=== PATIENT | male | born 1940 | race Caucasian/White ===

== ENCOUNTER → 2016-09-13 | Outpatient (CLI) | payer OTHER ==
[2016-09-13 09:56] LABS: ASPARTATE AMINO TRANSFERASE 18 IU/L (21-57); BLOOD UREA NITROGEN 31 mg/dL (7-22); BUN/CREATININE RATIO 19.37 (6-20); CALCIUM 9.8 mg/dL (8.7-10.7); CHLORIDE 105 meq/L (98-112); CREATININE 1.6 mg/dL (0.70-1.50); GLUCOSE 89 mg/dL (78-110); HDL CHOLESTEROL 45 mg/dL (40-150); POTASSIUM 4.7 meq/L (3.8-5.2); SODIUM 138 meq/L (135-145); TOTAL PROTEIN 7.9 g/dL (6.1-8.0); TRIGLYCERIDES 154 mg/dL (44-200)
[2016-09-13 10:05] LABS: BLOOD UREA NITROGEN 31 mg/dL (7-22); BUN/CREATININE RATIO 19.37 (6-20); CALCIUM 9.9 mg/dL (8.7-10.7); CHLORIDE 105 meq/L (98-112); CREATININE 1.6 mg/dL (0.70-1.50); GLUCOSE 90 mg/dL (78-110); PHOSPHORUS 4.9 mg/dl (2.4-4.3); POTASSIUM 4.7 meq/L (3.8-5.2); SODIUM 139 meq/L (135-145)
== END ==
LOC: LAB 09:12
PROVIDERS: ATTEND Internal Medicine
DX: I12.9 Hypertensive chronic kidney disease with stage 1 through stage 4 chronic kidney disease, or unspecified chronic kidney disease (principal); N18.4 Chronic kidney disease, stage 4 (severe); E78.2 Mixed hyperlipidemia
CPT/HCPCS: 80053; 80061; 80069

== ENCOUNTER → 2016-09-16 | Outpatient (CLI) | payer OTHER | LOC: MMPC 11:11 | PROVIDERS: ATTEND Internal Medicine | DX: F10.10 Alcohol abuse, uncomplicated (principal); I10 Essential (primary) hypertension; E78.2 Mixed hyperlipidemia | CPT/HCPCS: 99214; G0463 ==

== ENCOUNTER 2016-10-14 13:08 | Emergency (ER) | payer OTHER ==
[2016-10-14 13:27] VITALS: RESP 16
--- NOTE | 2016-10-14 13:37 | PDOC ---
Psych/Suicidal/OD HPI - General Chief Complaint: Suicidal Ideation / Attempt Stated Complaint: SUICIDAL IDEATION, ETOH INTOX Date Seen by Provider: 10/14/16 Time Seen by Provider: 13:37 Source: POSITIVE: Patient, Police, RN/MD Exam Limitations: POSITIVE: Intoxication Nurse's Notes Reviewed & Considered: Yes - History of Present Illness Timing: REPORTS: Abrupt Duration: 1 hour Intent: REPORTS: Suicide Context: REPORTS: Other (Patient states he is unsure of why) Associated Symptoms: REPORTS: Depressed ( he wants to harm himself.), Suicidal Thoughts, Specific Plan (Patient had a loaded gun in his lap.), Other (Alcohol intoxication) How did ingestion/attempt come to attention: Shows department was contacted by the patient's relative. Started that would find him at the finger where his aircraft tenderness. Shows to be reports that patient was sitting in the truck with a loaded 22 caliber handgun in his lap, a loaded magazine and around in the chamber. Arrived By: REPORTS: Police Similar Symptoms Previously: No Recent Care Received: REPORTS: Denies Any Prior Injuries Related to Current Complaint?: No - Patient Home Medications Home Medications: Home Medications Medication Instructions Recorded Confirmed Aspirin 81 mg PO DAILY 07/30/12 10/14/16 Latanoprost Ophth Soln 0.005% 1 drop OP HS 07/30/12 10/14/16 Montelukast Sodium [Singulair] 10 mg PO DAILY 07/30/12 10/14/16 Amlodipine Besylate [Norvasc] 1 tab PO DAILY #30 tab 01/05/15 10/14/16 Furosemide [Lasix] 1 tab PO DAILY #0 tab 05/18/15 10/14/16 Losartan Potassium 1 tab PO BID #0 tab 03/18/16 10/14/16 Spironolactone 1 tab PO BID #0 tab 03/18/16 10/14/16 Naltrexone HCl 1 tab PO QD #30 tab 09/16/16 10/14/16 Acetaminophen 2 tab PO Q6H PRN PRN 10/14/16 10/14/16 Atorvastatin Calcium 0.5 tab PO BEDTIME 10/14/16 10/14/16 Calcium Carbonate [Tums] 200 mg PO PRN PRN 10/14/16 10/14/16 Cholecalciferol [Vitamin D] 1 cap PO DAILY 10/14/16 10/14/16 Diclofenac Sodium [Voltaren] 2 gm TOPICAL QID 10/14/16 10/14/16 Folic Acid/Vitamin B Comp W-C 1 tab PO DAILY 10/14/16 10/14/16 [Renal Multivitamin Tablet] Iron,Carbonyl/Vit C/Vit B12/FA 1 tab PO DAILY 10/14/16 10/14/16 [Iron 100 Plus Tablet] Lutein 1 cap PO DAILY 10/14/16 10/14/16 Naphazoline HCl/Phenir Mal 1 - 2 drp EACH EYE PRN PRN 10/14/16 10/14/16 [Opcon-A Eye Drops] Naproxen Sodium [Aleve] 2 tab PO BID PRN 10/14/16 10/14/16 [place]-3/Dha/Epa/Fish Oil [[place] 3 1 cap PO DAILY 10/14/16 10/14/16 500 Softgel] Spironolactone 25 mg PO DAILY 10/14/16 10/14/16 Thiamine HCl 1 tab PO DAILY 10/14/16 10/14/16 - Patient Allergies Allergies/Adverse Reactions: Allergies Allergy/AdvReac Type Severity Reaction Status Date / Time No Known Allergies Allergy Verified 10/14/16 13:10 Past Medical History - heen HEENT History: Glaucoma, Hard of Hearing, Dentures/Partials Additional HEENT History: PARTIALS Cardiovascular History: Hypertension, Hyperlipidemia Additional Cardiovasular History: denies DC Respiratory History: Asthma Gastrointestinal History: GERD, Peptic Ulcer Disease, GI Bleed Additional Gastrointestinal History: RARE REFLUX/ GI BLEED/ DUODENAL ULCER Genitourinary History: Renal Failure Endocrine History: Hypothyroidism Musculoskeletal History: Arthritis, Back Pain, Joint Pain Prosthesis or Implant: Yes (LEFT ARM, neck and back, ? R WRIST) Neurological History: Denies History Blood Disorders: Anemia Psychiatric History: Denies History History of Sexually Transmitted Diseases: No Cancer History: Denies History In Past Year Been Physically Harmed or Verbally Threatened: No History of MDRO: No History of Other Communicable Diseases: No Tobacco Use: Never Smoker Alcohol Use: Heavy How much alcohol do you normally drink a day?: 4 WINE COOLERS DAILY USUALLY Substance Use Type: None Previous Surgical History: Yes Type / Date of Surgery: RIGHT CTR/ COLONOSCOPY/ LEFT FOREARM ORIF/ NECK AND BACK FUSION/EGD 11/13/14 ;/ BILAT SHOULDER Anesthesia Reactions: No Malignant Hyperthermia: No Significant Family History: No pertinent family hx Additional Family History: SISTER-CA/ALZHEIMER'S ROS - Limitations ROS Limitations: Intoxication (Patient is intoxicated and further review of systems is essentially unavailable.) Psych/Suicidal/OD Exam - General Appearance General Appearance: POSITIVE: Alert, Other (Intoxicated) - HEENT HEENT: POSITIVE: Head Inspection Nml, Eyes Inspection Nml, Ears Inspection Nml, Nose Inspection Nml, Oral/Dental Inspect. Nml, Pharynx Inspect. Nml, PERRL, EOMI - Pupil Size Pupil Size: 4 mm: Bilateral - Neurological/Psychological Mental Status: POSITIVE: Tearful, Suicidal Ideations, Other (Intoxicated) Orientation: POSITIVE: Cannot Determine Cranial Nerves: POSITIVE: seat coverer Intact as Tested Sensory/Motor: POSITIVE: Normal Motor Response, Normal Sensory Response, Abnormal Gait (Patient is intoxicated with a staggering gait.) When asked, pt ADMITS continued consideration of suicide:: Yes - Neck/Back Neck/Back: POSITIVE: Normal Inspection, Supple - Respiratory Respiratory: POSITIVE: No Respiratory Distress, Breath Sounds Normal - CVS Cardiovascular: POSITIVE: Regular Rate and Rhythm, Heart Sounds Normal - Abdomen Abdomen: Soft: (All Quadrants), Normal Bowel Sounds: (All Quadrants), Denies Tenderness: (All Quadrants) - Skin Skin: POSITIVE: Intact, Normal For Race, Warm, Dry, No Rash - Extremities Extremity: Non-Tender: (All Extremities), Normal ROM: (All Extremities), Normal Inspection: (All Extremities) Psych/Suicidal/OD Progress - Results Reviewed by me Lab Results Reviewed: Yes Lab Results:: Laboratory Results 10/14/16 Range/Units 13:53 WBC 8.56 (4.8-10.8) 10^3/uL RBC 4.52 L (4.70-6.10) 10^6/uL Hgb 14.4 (14.0-18.0) g/dL Hct 42.4 (42.0-52.0) % MCV 93.8 H (80-90) FL MCH 31.9 H (27-31) PG MCHC 34.0 (33-37) g/dL RDW Std Deviation 47.4 (39-50) fL RDW Coeff of [place] 14.1 (11.5-14.5) % Plt Count 250 (140-350) 10*3/uL MPV 8.8 (7.4-12.2) FL Immature Gran % (Auto) 0.6 (0-5) % Neut % (Auto) 63.1 (50-80) % Lymph % (Auto) 24.9 (10-50) % Hendricks % (Auto) 9.1 (5-15) % Eos % (Auto) 1.6 (0-8) % Baso % (Auto) 0.7 (0-1) % Immature Gran # (Auto) 0.05 10*3/UL Neut # (Auto) 5.40 10*3/UL Lymph # (Auto) 2.13 10*3/uL Hendricks # (Auto) 0.78 (0.3-0.8) 10*3/UL Eos # (Auto) 0.14 10*3/UL Baso # (Auto) 0.06 10*3/UL WBC Morphology Comment Normal morphology (NORM) Plt Morphology Comment Normal morphology (NORM) RBC Morph Comment Normal morphology (NORM) Sodium 144 (135-145) meq/L Potassium 5.3 H (3.8-5.2) meq/L Chloride 108 (98-112) meq/L Carbon Dioxide 19 L (23-33) meq/L Anion Gap 17 (5-20) BUN 28 H (7-22) mg/dL Creatinine 1.5 (0.70-1.50) mg/dL Estimated GFR (>60 ml/min/1.73m(2)) BUN/Creatinine Ratio 18.66 (6-20) Glucose 96 (78-110) mg/dL Calculated Osmolality 303.0 H (267-292) mOsm/kg Calcium 9.1 (8.7-10.7) mg/dL Total Bilirubin 0.7 (0.3-1.2) mg/dL AST 38 (21-57) IU/L ALT 29 (21-72) IU/L Alkaline Phosphatase 76 (38-126) IU/L Total Protein 8.3 H (6.1-8.0) g/dL Albumin 4.7 (3.5-4.8) g/dL Globulin 3.6 (2.50-4.10) g/dL Albumin/Globulin Ratio 1.30 (1.3-2.0) mg/g TSH 0.191 L (0.2700-4.2000) uIU/mL Ur Collection Type Clean catch urine Urine Color Yellow Urine Clarity Clear (CLEAR) Urine pH 5.0 (5.0-8.5) Ur Specific [place] <=1.005 (1.005-1.030) U Specif Grav (Refrac) 1.005 Urine Protein Negative (NEG) mg/dl Urine Glucose (UA) Negative (NEG) mg/dL Urine Ketones Negative (NEG) Urine Occult Blood Negative (NEG) Urine Nitrate Negative (NEG) Urine Bilirubin Negative (NEG) Urine Urobilinogen 0.2 (0.2) EU/dL Ur Leukocyte Esterase Negative (NEG) Ur Culture Indicated? Culture not set Urine Opiates Screen Negative (NEG) Ur Buprenorphine Negative (NEG) Ur Oxycodone Screen Negative (NEG) Urine Methadone Screen Negative (NEG) Ur Propoxyphene Screen Negative (NEG) Barbiturate Screen Negative (NEG) U Tricyclic Antidepress Negative (NEG) Phencyclidine Screen Negative (NEG) Amphetamines Screen Negative (NEG) U Methamphetamines Scrn Negative (NEG) Benzodiazepines Screen Negative (NEG) Cocaine Screen Negative (NEG) U Marijuana (THC) Screen Negative (NEG) Serum Alcohol 336 H (0-10) mg/dL - Patient's Progress Pain Medication Addressed: POSITIVE: No Re-Examine Time: 14:59 Status: POSITIVE: Improved MDM / ED Course: Patient was examined, an IV was started, blood drawn and sent to the lab for studies. Patient was interviewed by [employer] They agree that he is a danger to self. He has been accepted for admission by [facility] for evaluation of his suicidal ideation. Findings: Blood alcohol is 336. TSH is slightly low at 0.19. Potassium is minimally elevated at 5.3 with the upper limits of normal being 5.2. Assessment: #1 suicidal ideation with plan, intent, and means. #2 acute alcohol intoxication. Patient is medically stable. Plan: Transfer to [facility], accepted by Carina CASTELLON. - Medical Clearance for Psych Referral Cleared medically for psychiatric referral: Yes - Consult Counseled: POSITIVE: Patient, RE: Lab Results, RE: DX Patient Care Time - Estimated PCT Patient Care Time (In Minutes): 30 Vital Signs - Recent Vital Signs Vital Signs: Vital Signs (Last 8 hours) Temp Pulse Pulse Resp BP BP Pulse Ox 10/14/16 15:00 97.0 F 61 16 167/94 100 04/10/17 14:07 97.5 F 66 16 177/106 10/14/16 13:08 97.5 F 66 16 177/106 100 - VS Reviewed Vital Signs Reviewed: Yes Discharge Clinical Impression: Alcohol abuse, Suicidal ideation Discharge Disposition: Transferred to Psychiatric Facility Condition: Stable Patient Instructions Given at Discharge: Alcohol Intoxication (ED), Suicide Prevention for Older Adults (ED) Follow Up With: NONE,NONE [Primary Care Provider] - Date Decision to Transfer to Another Facility: 10/14/16 Time Decision to Transfer to Another Facility: 15:03
[2016-10-14 13:58] LABS: BASOPHILS # (AUTO) 0.06 10*3/UL; BASOPHILS % (AUTO) 0.7 % (0-1); EOSINOPHILS # (AUTO) 0.14 10*3/UL; EOSINOPHILS % (AUTO) 1.6 % (0-8); HEMATOCRIT 42.4 % (42.0-52.0); HEMOGLOBIN 14.4 g/dL (14.0-18.0); LYMPHOCYTES # (AUTO) 2.13 10*3/uL; MEAN CORPUSCULAR HEMOGLOBIN 31.9 PG (27-31); MEAN CORPUSCULAR VOLUME 93.8 FL (80-90); MEAN PLATELET VOLUME 8.8 FL (7.4-12.2); MONOCYTES # (AUTO) 0.78 10*3/UL (0.3-0.8); MONOCYTES % (AUTO) 9.1 % (5-15); NEUTROPHILS % (AUTO) 63.1 % (50-80); RED BLOOD COUNT 4.52 10^6/uL (4.70-6.10)
[2016-10-14 14:00] LABS: BILIRUBIN,URINE NEGATIVE (NEG); COLOR,URINE YELLOW; GLUCOSE, URINE (UA) NEGATIVE (NEG); NITRATE,URINE NEGATIVE (NEG); OCCULT BLOOD,URINE NEGATIVE (NEG); PROTEIN,URINE NEGATIVE (NEG); UROBILINOGEN,URINE 0.2 EU/dL (0.2)
[2016-10-14 14:02] LABS: CLARITY,URINE CLEAR (CLEAR); PLATELET MORPHOLOGY COMMENT NORMAL MORPHOLOGY (NORM); RBC MORPHOLOGY COMMENT NORMAL MORPHOLOGY (NORM); WBC MORPHOLOGY COMMENT NORMAL MORPHOLOGY (NORM)
[2016-10-14 14:11] LABS: SERUM ALBUMIN 4.7 g/dL (3.5-4.8)
[2016-10-14 14:12] LABS: AMPHETAMINE SCREEN NEGATIVE (NEG); CANNABINOID SCREEN,URINE NEGATIVE (NEG); COCAINE SCREEN NEGATIVE (NEG); METHADONE URINE SCREEN NEGATIVE (NEG); METHAMPHETAMINES SCREEN,URINE NEGATIVE (NEG); OPIATE SCREEN,URINE NEGATIVE (NEG); URINE SAMPLE TYPE CLEAN CATCH URINE; URINE SPECIFIC GRAVITY - MAN 1.005
[2016-10-14 14:21] LABS: BUN/CREATININE RATIO 18.66 (6-20); CALCIUM 9.1 mg/dL (8.7-10.7)
[2016-10-14 15:24] VITALS: TEMP 97
== END 2016-10-14 18:25 ==
LOC: ER 13:08
DX: R45.851 Suicidal ideations (principal); F10.129 Alcohol abuse with intoxication, unspecified; F43.10 Post-traumatic stress disorder, unspecified
CPT/HCPCS: 80053; 80305; 80320; 81003; 84443; 85025; 90791; 99282

== ENCOUNTER → 2016-10-30 | Outpatient (CLI) | payer OTHER ==
[2016-10-30 08:13] LABS: HEMOGLOBIN 13.3 g/dL (14.0-18.0); MEAN CORPUSCULAR HEMOGLOBIN 31.3 PG (27-31); MEAN CORPUSCULAR HGB CONC 33.3 g/dL (33-37); MEAN CORPUSCULAR VOLUME 94.1 FL (80-90); MEAN PLATELET VOLUME 9.2 FL (7.4-12.2); RED BLOOD COUNT 4.25 10^6/uL (4.70-6.10)
[2016-10-30 08:55] LABS: CALCIUM 9.3 mg/dL (8.7-10.7); PHOSPHORUS 4.4 mg/dl (2.4-4.3)
== END ==
LOC: LAB 07:52
PROVIDERS: ATTEND Physician Assistant Medical
DX: N18.3 Chronic kidney disease, stage 3 (moderate) (principal); D63.1 Anemia in chronic kidney disease; R80.0 Isolated proteinuria
CPT/HCPCS: 36415; 80069; 82565; 84156; 85027

== ENCOUNTER → 2016-12-14 | Outpatient (CLI) | payer OTHER ==
[2016-12-14 08:37] LABS: HEMATOCRIT 44.3 % (42.0-52.0); MEAN CORPUSCULAR HGB CONC 33.9 g/dL (33-37); MEAN CORPUSCULAR VOLUME 91.5 FL (80-90); MEAN PLATELET VOLUME 9.2 FL (7.4-12.2); RED BLOOD COUNT 4.84 10^6/uL (4.70-6.10)
[2016-12-14 09:08] LABS: BLOOD UREA NITROGEN 28 mg/dL (7-22); CALCIUM 9.2 mg/dL (8.7-10.7); PHOSPHORUS 4.9 mg/dl (2.4-4.3); SERUM ALBUMIN 4.2 g/dL (3.5-4.8)
== END ==
LOC: LAB 08:23
PROVIDERS: ATTEND Internal Medicine Nephrology
DX: N18.3 Chronic kidney disease, stage 3 (moderate) (principal); D63.1 Anemia in chronic kidney disease; N25.81 Secondary hyperparathyroidism of renal origin
CPT/HCPCS: 36415; 80069; 83970; 85027